=== PATIENT | female | born 1990 | race Hispanic/Latino ===

== ENCOUNTER 2021-05-10 16:40 | Emergency (ER) | payer OTHER ==
[~2021-05-10] VITALS: Ht 157.5 cm; Wt 83.5 kg
[2021-05-10] MEDS ORDERED: CEPHALEXIN500 MG PO (17:51)
[2021-05-10] MEDS ORDERED: FLOMAX0.4 MG PO (17:51)
== END 2021-05-10 21:12 | disposition home or self-care (01) ==
LOC: FSED 16:42
DX: R30.0 Dysuria (principal); N20.0 Calculus of kidney; N39.0 Urinary tract infection, site not specified
CPT/HCPCS: 74176; 81003; 81025; 99283

== ENCOUNTER 2022-04-06 15:10 | Emergency (ER) | payer OTHER ==
[~2022-04-06] VITALS: Ht 157.5 cm; Wt 83.9 kg
[~2022-04-06 15:10] MED LIST: CEPHALEXIN500 MG PO; FLOMAX0.4 MG PO
[2022-04-06] MEDS ORDERED: FAMOTIDINE 20 MG/2 ML VIAL IV STA (15:59)
[2022-04-06] MEDS ORDERED: ONDANSETRON HCL INJ 2MG/ML 2ML 2 MG/ML VIAL IV STA (15:59)
[2022-04-06] MEDS ORDERED: SODIUM CHLORIDE 0.9% 1000ML 1,000 ML IV SCH (16:00)
[2022-04-06] MEDS ORDERED: SODIUM CHLORIDE 0.9% 1000ML 1,000 ML ONE (16:17)
[2022-04-06] MEDS ORDERED: FAMOTIDINE 20 MG/2 ML VIAL IV ONE (16:17)
[2022-04-06] MEDS ORDERED: ONDANSETRON ODT4 MG PO (16:17)
[2022-04-06] MEDS ORDERED: ONDANSETRON HCL INJ 2MG/ML 2ML 2 MG/ML VIAL ONE (16:17)
[2022-04-06] MEDS ORDERED: FAMOTIDINE40 MG PO (16:18)
== END 2022-04-06 17:59 | disposition home or self-care (01) ==
LOC: FSED 15:20
DX: R11.2 Nausea with vomiting, unspecified (principal); A08.4 Viral intestinal infection, unspecified; B34.9 Viral infection, unspecified; R10.13 Epigastric pain
CPT/HCPCS: 80053; 81003; 81025; 85025; 99284; J2405; J7030